=== PATIENT | female | born 2000 | race African-American/Black ===

== ENCOUNTER 2020-10-26 20:18 | Emergency (ER) | payer OTHER ==
[~2020-10-26] VITALS: Ht 152.4 cm; Wt 54.4 kg
[2020-10-26 21:51] LABS: URINE BILIRUBIN NEGATIVE (Negative); URINE BLOOD 2+ (Negative); URINE CLARITY SL CLOUDY; URINE COLOR YELLOW; URINE GLUCOSE-RANDOM* NEGATIVE (Negative); URINE KETONES 2+ (Negative); URINE LEUKOCYTES-REFLEX NEGATIVE (Negative); URINE NITRITE-REFLEX NEGATIVE (Negative); URINE PROTEIN (DIPSTICK) TRACE (Negative); URINE SPECIFIC GRAVITY >= 1.030 (1.005-1.035); URINE UROBILINOGEN 0.2 E.U./dl (0.2-1.0)
[2020-10-26 22:11] LABS: BACTERIA-REFLEX 1-9 Few /HPF (None Seen); CASTS None Seen /LPF (None Seen); CRYSTALS None Seen /LPF (None Seen); MUCUS >6 Heavy strn/LPF (None Seen); SQUAMOUS >10 Many /LPF (0-3); URINE RBC 1-2 Rare /HPF (NONE SEEN); URINE WBC-REFLEX 0-5 Rare /HPF (0-5)
[2020-10-26] MEDS ORDERED: MOBIC7.5 MG PO (22:14)
[2020-10-26] MEDS ORDERED: ZOFRAN ODT4 MG PO (22:14)
[2020-10-26 22:35] VITALS: BP 117/67
== END 2020-10-26 22:36 | disposition home or self-care (01) ==
LOC: ER 20:18
PROVIDERS: Physician Assistant
DX: U07.1 COVID-19 (principal); R50.9 Fever, unspecified